=== PATIENT | female | born 1975 | race Two or more races ===

== ENCOUNTER 2021-12-06 04:15 | Day surgery (SDC) | payer OTHER ==
[2021-12-04 11:38] VITALS: BMI 26.5
[2021-12-06] MEDS ORDERED: TRIAMCINOLONE ACET 40MG/1ML VIAL ONE (07:21)
[2021-12-06] MEDS ORDERED: BUPIVACAINE HCL/PF 0.5% (5MG/ML) 10 ML VIAL ONE (07:21)
[2021-12-06] MEDS ORDERED: LIDOCAINE HCL/PF 1% SDV 5ML VIAL ONE (07:21)
[2021-12-06] MEDS ORDERED: IOHEXOL 180 MG/1 ML ML IJ ONE ×2 (10:10→10:16)
[2021-12-06] MEDS ORDERED: LIDOCAINE HCL 1% PRESERVATIVE FREE - 30ML VIAL IJ ONE ×2 (10:11→10:15)
[2021-12-06] MEDS ORDERED: TRIAMCINOLONE ACET 40MG/1ML VIAL IM ONE ×2 (10:11→10:18)
[2021-12-06] MEDS ORDERED: BUPIVACAINE HCL/PF 0.5% (5MG/ML) 10 ML VIAL IJ ONE (10:11)
[2021-12-06 10:35] VITALS: BP 128/69; PULSE 65; TEMP 98.6
== END 2021-12-06 11:04 | disposition home or self-care (01) ==
LOC: JASU-SURG 04:15
PROVIDERS: ATTEND Pain Medicine Pain Medicine
PROC: 3E0U3BZ Introduction of Anesthetic Agent into Joints, Percutaneous Approach (ICD-10-PCS; 2021-12-06)
PROC: 3E0U33Z Introduction of Anti-inflammatory into Joints, Percutaneous Approach (ICD-10-PCS; principal; 2021-12-06 10:00)
DX: M53.3 Sacrococcygeal disorders, not elsewhere classified (principal); M54.50 Low back pain, unspecified; M25.552 Pain in left hip
CPT/HCPCS: 76000-TC-FY; 81025

== ENCOUNTER → 2022-03-21 | Day surgery (SDC) | payer OTHER ==
[2022-03-19 13:17] VITALS: BMI 26.5
[~2022-03-21] MED LIST: DEXAMETHASONE SOD PHOSPHATE 10 MG/1 ML VIAL ONE; LIDOCAINE HCL/PF 1% SDV 5ML VIAL ONE
== END | disposition home or self-care (01) ==
LOC: JASU-SURG 04:21
PROVIDERS: ATTEND Pain Medicine Pain Medicine
DX: Z53.8 Procedure and treatment not carried out for other reasons (principal)
CPT/HCPCS: J1100

== ENCOUNTER 2022-04-15 04:30 | Day surgery (SDC) | payer OTHER ==
[2022-04-10 14:52] VITALS: BMI 26.5
[2022-04-15] MEDS ORDERED: LIDOCAINE HCL 1% PRESERVATIVE FREE - 30ML VIAL IJ ONE (11:30)
[2022-04-15] MEDS ORDERED: LIDOCAINE HCL 1%, 10 MG/ML (50 mL VIAL) NR ONE (11:30)
[2022-04-15] MEDS ORDERED: IOHEXOL 180 MG/1 ML ML IJ ONE (11:30)
[2022-04-15] MEDS ORDERED: DEXAMETHASONE SOD PHOSPHATE 10 MG/1 ML VIAL IVPUSH ONE (11:31)
[2022-04-15 13:23] VITALS: BP 121/73; PULSE 63; TEMP 97.8
== END 2022-04-15 12:10 | disposition home or self-care (01) ==
LOC: JASU-SURG 04:30
PROVIDERS: ATTEND Pain Medicine Pain Medicine
PROC: 3E0R33Z Introduction of Anti-inflammatory into Spinal Canal, Percutaneous Approach (ICD-10-PCS; 2022-04-15)
PROC: 3E0R3BZ Introduction of Anesthetic Agent into Spinal Canal, Percutaneous Approach (ICD-10-PCS; principal; 2022-04-15 17:30)
DX: M54.16 Radiculopathy, lumbar region (principal)
CPT/HCPCS: 76000-TC-FY; 81025; J1100

== ENCOUNTER 2022-05-16 03:59 | Day surgery (SDC) | payer OTHER ==
[2022-05-14 10:23] VITALS: BMI 26.5
[2022-05-16] MEDS ORDERED: LIDOCAINE HCL/PF 1% SDV 5ML VIAL ONE (07:08)
[2022-05-16] MEDS ORDERED: DEXAMETHASONE SOD PHOSPHATE 10 MG/1 ML VIAL ONE (07:08)
[2022-05-16] MEDS ORDERED: SODIUM CHLORIDE 0.9% P/F 10 ML VIAL IJ ONE (07:10)
[2022-05-16 09:40] VITALS: TEMP 97.8
[2022-05-16] MEDS ORDERED: LIDOCAINE HCL 1% PRESERVATIVE FREE - 30ML VIAL IJ ONE ×3 (11:42→12:13)
[2022-05-16] MEDS ORDERED: DEXAMETHASONE SOD PHOSPHATE 10 MG/1 ML VIAL IVPUSH ONE ×2 (11:42→12:13)
[2022-05-16] MEDS ORDERED: IOHEXOL 180 MG/1 ML ML IJ ONE ×3 (11:43→12:13)
[2022-05-16 13:41] VITALS: BP 114/68; PULSE 62
== END 2022-05-16 12:50 | disposition home or self-care (01) ==
LOC: JASU-SURG 03:59
PROVIDERS: ATTEND Pain Medicine Pain Medicine
PROC: 3E0R33Z Introduction of Anti-inflammatory into Spinal Canal, Percutaneous Approach (ICD-10-PCS; 2022-05-16)
PROC: 3E0R3BZ Introduction of Anesthetic Agent into Spinal Canal, Percutaneous Approach (ICD-10-PCS; principal; 2022-05-16 11:30)
DX: M54.16 Radiculopathy, lumbar region (principal)
CPT/HCPCS: 81025; J1100

== ENCOUNTER 2022-10-27 04:23 | Day surgery (SDC) | payer OTHER ==
[2022-10-27] MEDS ORDERED: ACETAMINOPHEN 1000 MG/100 ML BAG IVPB ONE (06:30)
[2022-10-27] MEDS ORDERED: PHENAZOPYRIDINE HCL 100 MG TABLET (FP) PO ONE (06:30)
[2022-10-27] MEDS ORDERED: TRANEXAMIC ACID 1000 MG/10 ML VIAL IVPUSH ONE (06:30)
[2022-10-27] MEDS ORDERED: GABAPENTIN 300 MG CAPSULE PO ONE (06:30)
[2022-10-27] MEDS ORDERED: CEFAZOLIN 2 GM in DEXTROSE 5%-WATER 100 ML IVPB ONE (06:30)
[2022-10-27 07:05] VITALS: BMI 20.3
[2022-10-27] MEDS ORDERED: FENTANYL CITRATE/PF 50 MCG/ML VIAL ONE ×3 (07:08→11:33)
[2022-10-27] MEDS ORDERED: ACETAMINOPHEN INJECTION 100 ML IVPB ONE (07:08)
[2022-10-27] MEDS ORDERED: ROCURONIUM BROMIDE 50 MG/5 ML SYRINGE ONE ×2 (07:08→11:01)
[2022-10-27] MEDS ORDERED: MIDAZOLAM HCL 2 MG/2 ML SINGLE DOSE VIAL ONE (07:09)
[2022-10-27] MEDS ORDERED: SUCCINYLCHOLINE CHLORIDE 200 MG/10 ML SYRINGE ONE (07:56)
[2022-10-27] MEDS ORDERED: ceFAZolin SODIUM 1 GM VIAL IVPB ONE (08:07)
[2022-10-27] MEDS ORDERED: NEOSTIGMINE METHYLSULFATE 0.5 MG/ML - 10 ML MDV ONE (08:32)
[2022-10-27] MEDS ORDERED: PROPOFOL 20 ML ONE ×2 (09:19)
[2022-10-27] MEDS ORDERED: ONDANSETRON 4 MG/2 ML VIAL IVPUSH PRN ×2 (10:16→10:22)
[2022-10-27] MEDS ORDERED: IBUPROFEN 800 MG/8 ML IJ IVPB PRN (10:16)
[2022-10-27] MEDS ORDERED: oxyCODONE HCL 5 MG TABLET PO PRN (10:22)
[2022-10-27] MEDS ORDERED: DOCUSATE SODIUM 100 MG CAPSULE (FP) PO PRN (10:22)
[2022-10-27] MEDS ORDERED: BISACODYL 5 MG TABLET.DR (FP) PO PRN (10:22)
[2022-10-27] MEDS ORDERED: LACTATED RINGERS SOLUTION 1,000 ML IV SCH (10:30)
[2022-10-27] MEDS: IBUPROFEN 800 MG/8 ML IJ IVPB PRN (15:47)
[2022-10-27] MEDS: oxyCODONE HCL 5 MG TABLET PO PRN ×2 (16:09→21:11)
[2022-10-27] MEDS: CEFAZOLIN 1 GM in DEXTROSE 5%-WATER - 50 ML IVPB SCH (16:28)
[2022-10-27] MEDS ORDERED: ACETAMINOPHEN 500 MG TABLET (FP) PO PRN (18:00)
[2022-10-27 20:22] LABS: HEMATOCRIT 36.5 % (32.4-45.2); HEMOGLOBIN 11.6 GM/dL (10.7-15.3); MCH 24.5 pg (25.7-33.7); MCHC 31.7 g/dl (32.0-36.0); MEAN CELL VOLUME 77.4 fl (80-96); MEAN PLT VOLUME 8.1 fl (7.5-11.1); PLATELET COUNT 246 10^3/uL (134-434); RBC 4.72 M/mm3 (3.60-5.2); RDW 14.8 % (11.6-15.6); WHITE BLOOD COUNT 9.3 K/mm3 (4.0-10.0)
[2022-10-27 20:40] LABS: BLOOD UREA NITROGEN 8.7 mg/dL (7-18); CALCIUM 8.2 mg/dL (8.5-10.1)
[2022-10-27 20:43] LABS: CREATININE 0.7 mg/dL (0.55-1.3)
[2022-10-27] MEDS: SIMETHICONE 80 MG TAB.CHEW (FP) PO PRN (21:11)
[2022-10-28] MEDS: CEFAZOLIN 1 GM in DEXTROSE 5%-WATER - 50 ML IVPB SCH (00:29)
[2022-10-28] MEDS: IBUPROFEN 800 MG/8 ML IJ IVPB PRN (06:19)
[2022-10-28] MEDS: SIMETHICONE 80 MG TAB.CHEW (FP) PO PRN (06:20)
[2022-10-28] MEDS ORDERED: ACETAMINOPHEN 1000 MG/100 ML BAG IVPB PRN (08:00)
[2022-10-28 08:04] LABS: HEMOGLOBIN 11.2 GM/dL (10.7-15.3); MCH 24.8 pg (25.7-33.7); MCHC 32.2 g/dl (32.0-36.0); MEAN CELL VOLUME 76.9 fl (80-96); MEAN PLT VOLUME 8.2 fl (7.5-11.1); PLATELET COUNT 232 10^3/uL (134-434); RBC 4.54 M/mm3 (3.60-5.2); RDW 15.1 % (11.6-15.6); WHITE BLOOD COUNT 8.4 K/mm3 (4.0-10.0)
[2022-10-28 08:07] LABS: CALCIUM 8.1 mg/dL (8.5-10.1)
[2022-10-28 08:08] LABS: BLOOD UREA NITROGEN 8.6 mg/dL (7-18)
[2022-10-28 08:10] LABS: CREATININE 0.7 mg/dL (0.55-1.3)
[2022-10-28] MEDS ORDERED: SIMETHICONE 80 MG TAB.CHEW (FP) PO PRN (08:32)
[2022-10-28] MEDS ORDERED: POLYETHYLENE GLYCOL (HEALTHYLAX) 3350 17 GM PACKET PO ONE (08:45)
[2022-10-28 10:00] VITALS: BP 92/54; PULSE 74; RESP 16
[2022-10-28] MEDS ORDERED: ENOXAPARIN NA (PORCINE) 40 MG/0.4 ML DISP.SYRIN SQ SCH (10:00)
[2022-10-28 10:16] VITALS: TEMP 97.5
[2022-10-28] MEDS ORDERED: KETOROLAC TROMETHAMINE 30 MG/1 ML VIAL IVPUSH ONE (12:50)
== END 2022-10-28 13:20 | disposition home or self-care (01) ==
LOC: JASUSAT 04:23 → J3W 13:13 → JASUSAT 10-28 13:20
PROVIDERS: ATTEND Obstetrics & Gynecology
PROC: 0UT74ZZ Resection of Bilateral Fallopian Tubes, Percutaneous Endoscopic Approach (ICD-10-PCS; 2022-10-27)
PROC: 0UT94ZZ Resection of Uterus, Percutaneous Endoscopic Approach (ICD-10-PCS; 2022-10-27)
PROC: 0UT94ZZ Resection of Uterus, Percutaneous Endoscopic Approach (ICD-10-PCS; principal; 2022-10-27 07:30)
PROC: 0UT24ZZ Resection of Bilateral Ovaries, Percutaneous Endoscopic Approach (ICD-10-PCS; 2022-10-27 07:30)
DX: D25.9 Leiomyoma of uterus, unspecified (principal); N80.03 Adenomyosis of the uterus; N72 Inflammatory disease of cervix uteri; N83.02 Follicular cyst of left ovary; N92.0 Excessive and frequent menstruation with regular cycle
CPT/HCPCS: 58571; S2900; 36415; 80048; 81025; 85027; 86850; 86900; 86901; 88307-TC; 94010; 94760

== ENCOUNTER 2022-11-09 07:20 | Emergency (ER) | payer OTHER ==
[2022-11-09 07:46] VITALS: BP 106/70; PULSE 70; RESP 18; TEMP 97.5; BMI 19.3
[2022-11-09 08:27] LABS: PH,URINE 5.5 (5.0-8.0); URINE APPEARANCE CLEAR; URINE BILIRUBIN NEGATIVE (NEGATIVE); URINE COLOR YELLOW; URINE GLUCOSE (UA) NEGATIVE (NEGATIVE); URINE KETONE NEGATIVE (NEGATIVE); URINE LEUK ESTERASE NEGATIVE (NEGATIVE); URINE NITRITE NEGATIVE (NEGATIVE); URINE PROTEIN NEGATIVE (NEGATIVE); URINE UROBILINOGEN 0.2 mg/dL (0.2-1.0)
[2022-11-09] MEDS ORDERED: FLUCONAZOLE 50 MG TABLET PO ONE (08:38)
[2022-11-09] MEDS ORDERED: FLUCONAZOLE 150 MG TABLET PO ONE (09:05)
== END 2022-11-09 09:15 | disposition home or self-care (01) ==
LOC: JER 07:20
DX: B37.31 Acute candidiasis of vulva and vagina (principal); R30.0 Dysuria
CPT/HCPCS: 81003; 87086; 99283-25

== ENCOUNTER 2023-01-15 08:49 | Emergency (ER) | payer OTHER ==
[2023-01-15 09:07] VITALS: BP 115/62; PULSE 58; RESP 17; TEMP 97.8; BMI 19.9
[2023-01-15] MEDS ORDERED: IBUPROFEN 600 MG TABLET (FP) PO ONE ×2 (09:33→09:44)
== END 2023-01-15 10:04 | disposition home or self-care (01) ==
LOC: JERFT 08:49 → JER 08:49 → JERFT 10:04
DX: J20.9 Acute bronchitis, unspecified (principal)
CPT/HCPCS: 0241U-QW; 71046-TC-FY; 99284-25

== ENCOUNTER 2023-02-05 09:21 | Inpatient (IN) | payer OTHER ==
[2023-02-05 11:23] LABS: BASO % 0.7 % (0-2.0); EOS % 1.5 % (0-4.5); HEMATOCRIT 36.2 % (32.4-45.2); HEMOGLOBIN 11.7 GM/dL (10.7-15.3); LYMPH % 31.4 % (8-40); MCH 23.9 pg (25.7-33.7); MCHC 32.2 g/dl (32.0-36.0); MEAN CELL VOLUME 74.1 fl (80-96); MEAN PLT VOLUME 7.5 fl (7.5-11.1); MONO % 7.8 % (3.8-10.2); NEUT % 58.6 % (42.8-82.8); PLATELET COUNT 336 10^3/uL (134-434); RBC 4.89 M/mm3 (3.60-5.2); RDW 14.2 % (11.6-15.6); WHITE BLOOD COUNT 5.5 K/mm3 (4.0-10.0)
[2023-02-05 11:31] LABS: INR 1.1 (0.83-1.09); PROTHROMBIN TIME (PATIENT) 12.7 SEC (9.7-13.0)
[2023-02-05 11:39] LABS: CALCIUM 9.2 mg/dL (8.5-10.1)
[2023-02-05 11:40] LABS: ALBUMIN 3.7 g/dl (3.4-5.0); BLOOD UREA NITROGEN 12.2 mg/dL (7-18)
[2023-02-05 11:43] LABS: CREATININE 0.6 mg/dL (0.55-1.3)
[2023-02-05 11:44] LABS: BILIRUBIN,TOTAL 0.3 mg/dL (0.2-1)
[2023-02-05 11:45] LABS: TOT PROT 7.9 g/dl (6.4-8.2)
[2023-02-05 23:03] LABS: HIV INTERPRETATION NEGATIVE (NEGATIVE)
[2023-02-06 00:50] VITALS: BMI 19.9
[2023-02-06] MEDS ORDERED: IBUPROFEN 400 MG TABLET (FP) PO ONE ×2 (01:03→22:52)
[2023-02-06 07:42] LABS: BASO % 0.2 % (0-2.0); EOS % 2.2 % (0-4.5); HEMATOCRIT 33.8 % (32.4-45.2); LYMPH % 35.4 % (8-40); MCH 23.8 pg (25.7-33.7); MCHC 32.5 g/dl (32.0-36.0); MEAN CELL VOLUME 73.4 fl (80-96); MEAN PLT VOLUME 7.6 fl (7.5-11.1); NEUT % 54.2 % (42.8-82.8); PLATELET COUNT 339 10^3/uL (134-434); RDW 13.9 % (11.6-15.6); WHITE BLOOD COUNT 4.9 K/mm3 (4.0-10.0)
[2023-02-06 08:05] LABS: ALBUMIN 3.3 g/dl (3.4-5.0)
[2023-02-06 08:06] LABS: BLOOD UREA NITROGEN 16.6 mg/dL (7-18); MAGNESIUM 1.9 mg/dL (1.8-2.4); PHOSPHOROUS 4.2 mg/dL (2.5-4.9)
[2023-02-06 08:08] LABS: BILIRUBIN,TOTAL 0.3 mg/dL (0.2-1); TOT PROT 6.9 g/dl (6.4-8.2)
[2023-02-06 08:09] LABS: CREATININE 0.7 mg/dL (0.55-1.3)
[2023-02-06 08:10] LABS: CHOLESTEROL 236 mg/dL (50-200)
[2023-02-06 08:11] LABS: LDL CHOLESTEROL (ONLY SJRH) 138 mg/dL (5-100)
[2023-02-06 08:12] LABS: HDL CHOLESTEROL 85 mg/dL (40-60); TRIGLYCERIDES 54 mg/dL (0-150)
[2023-02-06] MEDS: ENOXAPARIN NA (PORCINE) 40 MG/0.4 ML DISP.SYRIN SQ SCH (10:12)
[2023-02-06] MEDS: ATORVASTATIN CA 10 MG TABLET (FP) PO SCH (10:12)
[2023-02-07] MEDS ORDERED: ACETAMINOPHEN 500 MG TABLET (FP) PO PRN (07:54)
[2023-02-07 08:11] LABS: BASO % 0.6 % (0-2.0); EOS % 2.2 % (0-4.5); HEMATOCRIT 33.7 % (32.4-45.2); HEMOGLOBIN 11.3 GM/dL (10.7-15.3); LYMPH % 37.3 % (8-40); MCH 24.5 pg (25.7-33.7); MCHC 33.5 g/dl (32.0-36.0); MEAN CELL VOLUME 73.2 fl (80-96); MEAN PLT VOLUME 7.9 fl (7.5-11.1); MONO % 8.7 % (3.8-10.2); NEUT % 51.2 % (42.8-82.8); PLATELET COUNT 323 10^3/uL (134-434); RDW 13.5 % (11.6-15.6); WHITE BLOOD COUNT 4.3 K/mm3 (4.0-10.0)
[2023-02-07 08:37] LABS: ALBUMIN 3.3 g/dl (3.4-5.0); BLOOD UREA NITROGEN 14.6 mg/dL (7-18); CALCIUM 8.8 mg/dL (8.5-10.1); MAGNESIUM 1.8 mg/dL (1.8-2.4)
[2023-02-07 08:41] LABS: BILIRUBIN,TOTAL 0.4 mg/dL (0.2-1); CREATININE 0.6 mg/dL (0.55-1.3)
[2023-02-07] MEDS: oxyCODONE HCL 5 MG TABLET PO PRN ×2 (10:21→21:39)
[2023-02-07] MEDS: ATORVASTATIN CA 10 MG TABLET (FP) PO SCH (10:21)
[2023-02-07] MEDS: ENOXAPARIN NA (PORCINE) 40 MG/0.4 ML DISP.SYRIN SQ SCH (10:22)
[2023-02-07] MEDS: LIDOCAINE 5% TOPICAL PATCH TP SCH (10:22)
[2023-02-07 14:49] VITALS: RESP 18
[2023-02-07] MEDS ORDERED: LIDOCAINE PATCH REMOVAL MC SCH (22:00)
[2023-02-08] MEDS: LIDOCAINE 5% TOPICAL PATCH TP SCH (10:53)
[2023-02-08] MEDS: ATORVASTATIN CA 10 MG TABLET (FP) PO SCH (10:55)
[2023-02-08] MEDS: ENOXAPARIN NA (PORCINE) 40 MG/0.4 ML DISP.SYRIN SQ SCH (10:55)
[2023-02-08 14:17] VITALS: BP 100/50; PULSE 86; TEMP 98
== END 2023-02-08 15:41 | disposition home or self-care (01) | DRG 720 ==
LOC: JER 09:21 → JERBED 17:46 → J7W 23:44
PROVIDERS: ADMIT Internal Medicine; ATTEND Internal Medicine
DX: A31.2 Disseminated mycobacterium avium-intracellulare complex (DMAC) (principal); J98.4 Other disorders of lung; E78.5 Hyperlipidemia, unspecified; M54.32 Sciatica, left side; R05.9 Cough, unspecified
CPT/HCPCS: 0241U-QW; 36415; 71046-TC-FY; 71250-TC; 80053; 80061; 83735; 84100; 84484; 84702; 84703; 85025; 85610; 85730; 86480; 87070; 87116; 87205; 87206; 87389; 93005; 93010; 99285-25

== ENCOUNTER 2023-03-03 04:49 | Day surgery (SDC) | payer OTHER ==
[2023-02-27 15:16] VITALS: BMI 19.9
[~2023-03-03 04:49] MED LIST changes: +BUPIVACAINE HCL/PF 0.25% (2.5MG/ML) 10 ML VIAL IJ ONE; +DEXAMETHASONE SOD PHOSPHATE 10 MG/1 ML VIAL IVPUSH ONE; -DEXAMETHASONE SOD PHOSPHATE 10 MG/1 ML VIAL ONE; +LIDOCAINE 1% P/F 10 MG/ML VIAL INF ONE; -LIDOCAINE HCL/PF 1% SDV 5ML VIAL ONE
[2023-03-03 13:04] VITALS: RESP 18
[2023-03-03] MEDS ORDERED: ACETAMINOPHEN 500 MG TABLET (FP) PO PRN (13:08)
[2023-03-03] MEDS ORDERED: BUPIVACAINE HCL/PF 0.25% (2.5MG/ML) 10 ML VIAL IJ ONE ×2 (13:37)
[2023-03-03] MEDS ORDERED: LIDOCAINE 1% P/F 10 MG/ML VIAL INF ONE (13:37)
[2023-03-03] MEDS ORDERED: IOHEXOL 180 MG/1 ML ML IJ ONE (13:38)
[2023-03-03] MEDS ORDERED: DEXAMETHASONE SOD PHOSPHATE 10 MG/1 ML VIAL IVPUSH ONE (13:41)
[2023-03-03 16:53] VITALS: BP 114/71; PULSE 75; TEMP 97.8
== END 2023-03-03 14:10 | disposition home or self-care (01) ==
LOC: JASU-SURG 04:49
PROVIDERS: ATTEND Pain Medicine Pain Medicine
PROC: 3E0T33Z Introduction of Anti-inflammatory into Peripheral Nerves and Plexi, Percutaneous Approach (ICD-10-PCS; 2023-03-03)
PROC: 3E0T3BZ Introduction of Anesthetic Agent into Peripheral Nerves and Plexi, Percutaneous Approach (ICD-10-PCS; principal; 2023-03-03 14:15)
DX: M53.3 Sacrococcygeal disorders, not elsewhere classified (principal)
CPT/HCPCS: 76000-TC-FY; 81025; J1100

== ENCOUNTER 2023-05-05 04:08 | Day surgery (SDC) | payer OTHER ==
[~2023-05-05 04:08] MED LIST changes: -BUPIVACAINE HCL/PF 0.25% (2.5MG/ML) 10 ML VIAL IJ ONE; -DEXAMETHASONE SOD PHOSPHATE 10 MG/1 ML VIAL IVPUSH ONE; -LIDOCAINE 1% P/F 10 MG/ML VIAL INF ONE; +LIDOCAINE HCL 1% PRESERVATIVE FREE - 30ML VIAL IJ ONE
[2023-05-05 06:45] VITALS: BMI 20.4
[2023-05-05] MEDS ORDERED: LIDOCAINE HCL/PF 1% SDV 5ML VIAL ONE (07:24)
[2023-05-05] MEDS ORDERED: LIDOCAINE HCL 1% PRESERVATIVE FREE - 30ML VIAL IJ ONE (08:43)
[2023-05-05] MEDS ORDERED: ACETAMINOPHEN 500 MG TABLET (FP) PO PRN (08:56)
[2023-05-05 12:34] VITALS: BP 102/60; PULSE 61; RESP 17; TEMP 98.1
== END 2023-05-05 10:19 | disposition home or self-care (01) ==
LOC: JASU-SURG 04:08
PROVIDERS: ATTEND Pain Medicine Pain Medicine
PROC: 01HY3MZ Insertion of Neurostimulator Lead into Peripheral Nerve, Percutaneous Approach (ICD-10-PCS; principal; 2023-05-05 08:00)
DX: G89.4 Chronic pain syndrome (principal)
CPT/HCPCS: 64555; C1778; 81025

== ENCOUNTER 2023-05-26 05:14 | Day surgery (SDC) | payer OTHER ==
[2023-05-25 17:07] VITALS: BMI 20.4
[2023-05-26 06:58] VITALS: RESP 18
[2023-05-26] MEDS ORDERED: LIDOCAINE HCL/PF 1% SDV 5ML VIAL ONE (07:42)
[2023-05-26] MEDS ORDERED: LIDOCAINE HCL 1% PRESERVATIVE FREE - 30ML VIAL IJ ONE (08:52)
[2023-05-26 10:22] VITALS: BP 132/73; PULSE 66; TEMP 98.5
[2023-05-26] MEDS ORDERED: ACETAMINOPHEN 500 MG TABLET (FP) PO PRN (15:57)
== END 2023-05-26 10:00 | disposition home or self-care (01) ==
LOC: JASU-SURG 05:14
PROVIDERS: ATTEND Pain Medicine Pain Medicine
PROC: 01HY3MZ Insertion of Neurostimulator Lead into Peripheral Nerve, Percutaneous Approach (ICD-10-PCS; principal; 2023-05-26 08:00)
DX: G89.4 Chronic pain syndrome (principal); R10.30 Lower abdominal pain, unspecified
CPT/HCPCS: 64555; C1778; 81025

== ENCOUNTER 2023-12-15 04:30 | Day surgery (SDC) | payer OTHER ==
[2023-12-08 11:35] VITALS: BMI 20.4
[~2023-12-15 04:30] MED LIST changes: +ACETAMINOPHEN 500 MG TABLET (FP) PO PRN; -LIDOCAINE HCL 1% PRESERVATIVE FREE - 30ML VIAL IJ ONE
[2023-12-15] MEDS ORDERED: LIDOCAINE HCL/PF 1% SDV 5ML VIAL ONE (07:12)
[2023-12-15] MEDS ORDERED: BUPIVACAINE HCL/PF 0.75% 10 ML VIAL ONE (07:12)
[2023-12-15 07:31] VITALS: RESP 18; TEMP 97.7
[2023-12-15] MEDS ORDERED: LIDOCAINE HCL 1% PRESERVATIVE FREE - 30ML VIAL IJ ONE (11:08)
[2023-12-15] MEDS ORDERED: BUPIVACAINE HCL/PF 0.75% 10 ML VIAL NR ONE (11:08)
[2023-12-15 11:28] VITALS: BP 113/40; PULSE 60
[2023-12-15] MEDS ORDERED: ACETAMINOPHEN 500 MG TABLET (FP) PO PRN (11:40)
== END 2023-12-15 11:41 | disposition home or self-care (01) ==
LOC: JASU-SURG 04:30
PROVIDERS: ATTEND Pain Medicine Pain Medicine
PROC: 3E0T33Z Introduction of Anti-inflammatory into Peripheral Nerves and Plexi, Percutaneous Approach (ICD-10-PCS; 2023-12-15)
PROC: 3E0T3BZ Introduction of Anesthetic Agent into Peripheral Nerves and Plexi, Percutaneous Approach (ICD-10-PCS; principal; 2023-12-15 10:00)
DX: M47.816 Spondylosis without myelopathy or radiculopathy, lumbar region (principal)
CPT/HCPCS: 76000-TC-FY

== ENCOUNTER 2024-02-23 04:28 | Day surgery (SDC) | payer OTHER ==
[2024-02-16 15:39] VITALS: BMI 20.5
[2024-02-23 07:10] VITALS: RESP 18
[2024-02-23] MEDS ORDERED: TRIAMCINOLONE ACET 40MG/1ML VIAL ONE (07:13)
[2024-02-23] MEDS ORDERED: LIDOCAINE HCL/PF 1% SDV 5ML VIAL ONE (07:14)
[2024-02-23] MEDS ORDERED: BUPIVACAINE HCL/PF 0.5% (5MG/ML) 10 ML VIAL ONE (07:14)
[2024-02-23] MEDS: LIDOCAINE HCL 1% PRESERVATIVE FREE - 30ML VIAL IJ ONE ×2 (09:33→09:47)
[2024-02-23] MEDS: BUPIVACAINE HCL/PF 0.5% (5MG/ML) 10 ML VIAL IJ ONE ×2 (09:35→09:51)
[2024-02-23] MEDS: TRIAMCINOLONE ACET 40MG/1ML VIAL IM ONE ×2 (09:35→09:51)
[2024-02-23] MEDS: IOHEXOL 180 MG/1 ML ML IJ ONE ×2 (09:36→09:49)
[2024-02-23 10:05] VITALS: BP 100/54; PULSE 68; TEMP 97.8
[2024-02-23] MEDS ORDERED: ACETAMINOPHEN 500 MG TABLET (FP) PO PRN (13:25)
== END 2024-02-23 10:21 | disposition home or self-care (01) ==
LOC: JASU-SURG 04:28
PROVIDERS: ATTEND Pain Medicine Pain Medicine
PROC: 3E0U3BZ Introduction of Anesthetic Agent into Joints, Percutaneous Approach (ICD-10-PCS; 2024-02-23)
PROC: 3E0U33Z Introduction of Anti-inflammatory into Joints, Percutaneous Approach (ICD-10-PCS; principal; 2024-02-23 09:30)
DX: M53.3 Sacrococcygeal disorders, not elsewhere classified (principal)
CPT/HCPCS: 76000-TC-FY; 81025